=== PATIENT | female | born 1980 | race American Indian/Alaskan Native ===

== ENCOUNTER 2016-04-10 04:52 | Emergency (ER) | payer SELFPAY ==
[2016-04-10 05:12] VITALS: BP 115/75
[2016-04-10] MEDS ORDERED: DECADRON IM ONE (05:27)
[2016-04-10] MEDS ORDERED: BENADRYL PO ONE (05:27)
--- NOTE | 2016-04-10 05:36 | Emergency Department Report ---
HPI - General Chief Complaint: Animal Bite Time Seen by Provider: 04/10/16 05:26 - HPI HPI: 36-year-old female presents today with bed bug bites on both upper extremities since this morning. Patient states that she's been staying at a hotel and has seen the bed bugs. Positive for pruritus. Denies drainage or bleeding. Denies fever, chills, nausea, vomiting, chest pain, shortness of breath, abdominal pain. Denies difficulty breathing or difficulty swallowing. Denies any other medical complaints. ED Past Medical Hx - Past Medical History Previous Medical History?: No - Surgical History Past Surgical History?: No - Social History Smoking Status: Never Smoker Substance Use Type: None - Medications Home Medications: Home Medications Medication Instructions Recorded Confirmed Last Taken Type One Tablet 1 tab PO DAILY 06/13/14 06/13/14 1 Day Ago History Clindamycin [Cleocin] 300 mg PO Q8H #21 cap 06/14/14 Unknown Rx Ondansetron [Zofran Odt] 4 mg PO Q6H #30 tab.rapdis 06/14/14 Unknown Rx Diphenhydramine HCl [Benadryl 25 mg PO Q6H #20 tablet 04/10/16 Unknown Rx Allergy TAB] ED Review of Systems ROS: Stated complaint: BUG BITES Other details as noted in HPI Constitutional: denies: chills, fever, malaise Eyes: denies: eye pain ENT: denies: ear pain, throat pain, congestion Respiratory: denies: cough, shortness of breath, wheezing Cardiovascular: denies: chest pain, palpitations Endocrine: no symptoms reported Gastrointestinal: denies: abdominal pain, nausea, vomiting Skin: rash, pruritus Neurological: denies: headache, weakness Physical Exam - Physical Exam Vital Signs: Vital Signs 04/10/16 05:04 Temperature 98.6 F Pulse Rate 63 Respiratory 20 Rate Blood Pressure 115/75 O2 Sat by Pulse 100 Oximetry Physical Exam: GENERAL: The patient is well-developed and well-nourished. Patient is in NAD. SKIN: Erythematous, blanching, pruritic, raised bumps noted on both upper extremities. No signs of infection noted. HEAD: Normocephalic. Atraumatic. THROAT: No erythema, swelling or exudates. NECK: Supple, nontender, without lymphadenopathy. No meningitic signs are noted. CHEST/LUNGS: Clear to auscultation throughout. HEART/CARDIOVASCULAR: Regular rate and rhythm. No murmurs, rubs or gallops. ABDOMEN: Abdomen is soft, nontender. No guarding or rebound tenderness. EXTREMITIES: Peripheral pulses intact. Capillary refill less than 2 seconds. NEURO: Alert and oriented x 3. Normal gait. ED Course Vital Signs 04/10/16 05:04 Temperature 98.6 F Pulse Rate 63 Respiratory 20 Rate Blood Pressure 115/75 O2 Sat by Pulse 100 Oximetry ED Medical Decision Making - Lab Data Vital Signs 04/10/16 05:04 Temperature 98.6 F Pulse Rate 63 Respiratory 20 Rate Blood Pressure 115/75 O2 Sat by Pulse 100 Oximetry - Medical Decision Making 36-year-old female presents today with bed bug bites. Patient was given Decadron and Benadryl and reports symptomatic relief. Patient is in no acute distress at this time. She will be discharged home and is encouraged to follow up with a primary care provider. She will be sent home on Benadryl and is encouraged to return to the emergency room for any worsening symptoms. Critical care attestation.: If time is entered above; I have spent that time in minutes in the direct care of this critically ill patient, excluding procedure time. ED Disposition Clinical Impression: Bed bug bite Qualifiers: Encounter type: initial encounter Qualified Code(s): W57.XXXA - Bitten or stung by nonvenomous insect and other nonvenomous arthropods, initial encounter Disposition: DISCHARGED TO HOME OR SELFCARE Is pt being admited?: No Does the pt Need Aspirin: No Condition: Stable Instructions: Insect Bite or Sting (ED) Additional Instructions: Follow-up with primary care provider. Return to the emergency department if symptoms worsen. Prescriptions: Diphenhydramine HCl [Benadryl Allergy TAB] 25 mg PO Q6H #20 tablet Referrals: PRIMARY CARE [Primary Care Provider] - 3-5 Days [facility] [Outside] - 3-5 Days Forms: Work/School Release Form(ED), Accompanied Note Time of Disposition: 05:41
== END 2016-04-10 06:07 | disposition home or self-care (01) ==
LOC: ED 04:52
DX: S40.871A Other superficial bite of right upper arm, initial encounter (principal); S40.872A Other superficial bite of left upper arm, initial encounter; W57.XXXA Bitten or stung by nonvenomous insect and other nonvenomous arthropods, initial encounter; Y92.89 Other specified places as the place of occurrence of the external cause
CPT/HCPCS: 96372; 99282; J1100

== ENCOUNTER 2017-01-21 09:54 | Emergency (ER) | payer OTHER ==
[2017-01-21 10:29] VITALS: BP 100/54
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
== END 2017-01-21 14:23 | disposition home or self-care (01) ==
LOC: ED 09:54
DX: S66.912A Strain of unspecified muscle, fascia and tendon at wrist and hand level, left hand, initial encounter (principal); S80.02XA Contusion of left knee, initial encounter; V49.49XA Driver injured in collision with other motor vehicles in traffic accident, initial encounter; Y93.89 Activity, other specified; Y92.89 Other specified places as the place of occurrence of the external cause; Y99.8 Other external cause status

== ENCOUNTER 2020-02-29 03:03 | Emergency (ER) | payer MEDICAID, OTHER ==
[2020-02-29] MEDS ORDERED: ACETAMINOPHEN 500 MG TAB PO ONE (03:16)
[2020-02-29 03:50] LABS: Basophils # (Auto) 0.1 K/mm3 (0.0-0.1); Basophils % (Auto) 0.7 % (0.0-1.8); Eosinophils # (Auto) 0.2 K/mm3 (0.0-0.4); Eosinophils % (Auto) 2.2 % (0.0-4.3); Hematocrit 38.5 % (30.3-42.9); Hemoglobin 12.8 gm/dl (10.1-14.3); Lymphocytes # (Auto) 2.1 K/mm3 (1.2-5.4); Lymphocytes % (Auto) 25.2 % (13.4-35.0); Mean Corpuscular HGB Conc 33 % (30-34); Mean Corpuscular Volume 88 fl (79-97); Monocytes # (Auto) 0.8 K/mm3 (0.0-0.8); Monocytes % (Auto) 9.7 % (0.0-7.3); Platelet Count 327 K/mm3 (140-440); Red Blood Count 4.36 M/mm3 (3.65-5.03)
[2020-02-29 04:07] LABS: Alanine Aminotransferase 13 units/L (7-56); Albumin 4.1 g/dL (3.9-5); BUN/Creatinine Ratio 13; Blood Urea Nitrogen 8 mg/dL (7-17); Calcium 9.1 mg/dL (8.4-10.2); Hemolysis Index 2
--- NOTE | 2020-02-29 04:18 | Emergency Department Report ---
ED Female HPI - General Chief complaint: Vaginal Bleeding Stated complaint: VAGINAL BLEEDING/10WKS PREG Source: patient Mode of arrival: Ambulatory Limitations: No Limitations - History of Present Illness Initial comments: Patient is a A0 39-year-old -[place] female who is approximately 10 weeks gestation who presents to the ED with complaint of acute onset persistent suprapubic pain and vaginal bleeding for the last 1 week, worse in the last 2 days. Patient states that the pain is crampy and sharp and is intermittent and that the bleeding initially started as small spotting but in the last 2 days has had intermittent blood clots. Patient denies dysuria, urinary frequency and urgency, vaginal discharge, nausea, vomiting, diarrhea, fever, chills, cough, chest pain, shortness of breath, low back pain, headache, change in vision, dizziness or sore throat. MD Complaint: vaginal bleeding, pelvic pain -: Sudden, week(s) (1) Location: suprapubic, other (vaginal) Radiation: non-radiating Severity: moderate Severity scale (0 -10): 5 Quality: cramping, aching Consistency: intermittent Improves with: none Worsens with: none Are you Now?: Yes (Approximately 10 weeks gestation) Last Menstrual Period: 12/13/19 EDC: 09/18/20 Associated Symptoms: denies other symptoms, vaginal bleeding, abdominal pain. denies: vaginal discharge, nausea/vomiting, fever/chills, headaches, loss of appetite, dysuria, hematuria, rash, shortness of breath, syncope, weakness, other - Related Data Sexually active: Yes : 6 Para: 5 A: 0 Home Medications Medication Instructions Recorded Confirmed Last Taken One Tablet 1 tab PO DAILY 06/13/14 06/13/14 1 Day Ago ~06/12/14 Previous Rx's Medication Instructions Recorded Last Taken Type Clindamycin [Cleocin] 300 mg PO Q8H #21 cap 06/14/14 Unknown Rx Ondansetron [Zofran Odt] 4 mg PO Q6H #30 tab.rapdis 06/14/14 Unknown Rx Diphenhydramine HCl [Benadryl 25 mg PO Q6H #20 tablet 04/10/16 Unknown Rx Allergy TAB] Cyclobenzaprine HCl 7.5 mg PO TID PRN 10 Days #30 tab 01/21/17 Unknown Rx [Cyclobenzaprine 7.5 MG TAB] Ibuprofen [Ibuprofen 800] 800 mg PO Q6HR 7 Days #28 tablet 01/21/17 Unknown Rx Acetaminophen [Tylenol] 500 mg PO Q6HR PRN #30 tablet 02/29/20 Unknown Rx Allergies Allergy/AdvReac Type Severity Reaction Status Date / Time cephalexin monohydrate Allergy Itching Verified 01/21/17 10:23 [From Keflex] ED Review of Systems ROS: Stated complaint: VAGINAL BLEEDING/10WKS PREG Other details as noted in HPI Constitutional: denies: chills, fever Eyes: denies: eye pain, eye discharge, vision change ENT: denies: ear pain, throat pain Respiratory: denies: cough, shortness of breath, wheezing Cardiovascular: denies: chest pain, palpitations Endocrine: no symptoms reported Gastrointestinal: abdominal pain (suprapubic pain). denies: nausea, vomiting, diarrhea Genitourinary: abnormal menses (vaginal bleeding). denies: urgency, dysuria, discharge Musculoskeletal: denies: back pain, joint swelling, arthralgia Skin: denies: rash, lesions Neurological: denies: headache, weakness, paresthesias Psychiatric: denies: anxiety, depression Hematological/Lymphatic: denies: easy bleeding, easy bruising ED Past Medical Hx - Past Medical History Previous Medical History?: No - Surgical History Past Surgical History?: Yes Additional Surgical History: - Social History Smoking Status: Never Smoker Substance Use Type: None - Medications Home Medications: Home Medications Medication Instructions Recorded Confirmed Last Taken Type One Tablet 1 tab PO DAILY 06/13/14 06/13/14 1 Day Ago History ~06/12/14 Clindamycin [Cleocin] 300 mg PO Q8H #21 cap 06/14/14 Unknown Rx Ondansetron [Zofran Odt] 4 mg PO Q6H #30 tab.rapdis 06/14/14 Unknown Rx Diphenhydramine HCl [Benadryl 25 mg PO Q6H #20 tablet 04/10/16 Unknown Rx Allergy TAB] Cyclobenzaprine HCl 7.5 mg PO TID PRN 10 Days #30 tab 01/21/17 Unknown Rx [Cyclobenzaprine 7.5 MG TAB] Ibuprofen [Ibuprofen 800] 800 mg PO Q6HR 7 Days #28 tablet 01/21/17 Unknown Rx Acetaminophen [Tylenol] 500 mg PO Q6HR PRN #30 tablet 02/29/20 Unknown Rx ED Physical Exam - General Limitations: No Limitations General appearance: alert, in no apparent distress - Head Head exam: Present: atraumatic, normocephalic, normal inspection - Eye Eye exam: Present: normal appearance, PERRL, EOMI Pupils: Present: normal accommodation - ENT ENT exam: Present: normal exam, normal orophraynx, mucous membranes moist, TM's normal bilaterally, normal external ear exam - Neck Neck exam: Present: normal inspection, full ROM - Respiratory Respiratory exam: Present: normal lung sounds bilaterally. Absent: respiratory distress, wheezes, rales, rhonchi, chest wall tenderness, accessory muscle use, decreased breath sounds, prolonged expiratory - Cardiovascular Cardiovascular Exam: Present: regular rate, normal rhythm, normal heart sounds. Absent: systolic murmur, diastolic murmur, rubs, gallop - GI/Abdominal GI/Abdominal exam: Present: soft, tenderness (Palpable mild suprapubic tenderness), normal bowel sounds. Absent: guarding, rebound, hyperactive bowel sounds, hypoactive bowel sounds, organomegaly - Bi-manual exam: Present: other (Pelvic exam deferred, prefers own [employer]) - Extremities Exam Extremities exam: Present: normal inspection, full ROM, normal capillary refill - Back Exam Back exam: Present: normal inspection, full ROM. Absent: tenderness, CVA tenderness (R), CVA tenderness (L), muscle spasm, paraspinal tenderness, vertebral tenderness - Neurological Exam Neurological exam: Present: alert, oriented X3, CN II-XII intact, normal gait, reflexes normal - Psychiatric Psychiatric exam: Present: normal affect, normal mood - Skin Skin exam: Present: warm, dry, intact, normal color. Absent: rash ED Course Vital Signs 02/29/20 03:15 Temperature 98.1 F Pulse Rate 81 Respiratory 16 Rate Blood Pressure 104/69 O2 Sat by Pulse 99 Oximetry ED Medical Decision Making - Lab Data Result diagrams: 02/29/20 03:23 02/29/20 03:23 - Radiology Data Radiology results: report reviewed, image reviewed Transvaginal ultrasound shows a single live IUP of approximately 12 weeks and 3 days with a heart rate of 153 bpm. There is a visualized small mass in the lower uterus consistent with uterine fibroid. The ovaries were not visualized. - Medical Decision Making This is a A0 39-year-old -[place] female who is approximately 10 weeks gestation who presents to the ED with complaint of acute onset persistent suprapubic pain and vaginal bleeding for the last 1 week, worse in the last 2 days. Patient states that the pain is crampy and sharp and is intermittent and that the bleeding initially started as small spotting but in the last 2 days has had intermittent blood clots. In the ED, patient is alert and oriented x3 and is not in distress. Patient was treated for pain in the ED and lab test results [place] [id number]. The rest of the lab test results are nonactionable. On reevaluation, patient's pain is well controlled medication. Transvaginal ultrasound shows a single live IUP of approximately 12 weeks and 3 days with a heart rate of 153 bpm. There is a visualized small mass in the lower uterus consistent with uterine fibroid. The ovaries were not visualized. On reevaluation, patient's pain is well controlled medications. Patient will discharge home on pain medications and advised to maintain a complete pelvic rest with no strenuous, physical or sexual activity and to follow-up with DEPARTMENT ADMINISTRATOR physician in 2 to 3 days for reevaluation. Patient was advised return to the ED immediately if symptoms get worse. - Differential Diagnosis Ectopic preg; Ovarian cyst; Subchorionic bleed; Miscarriage; Fibroids; UTI Critical care attestation.: If time is entered above; I have spent that time in minutes in the direct care of this critically ill patient, excluding procedure time. ED Disposition Clinical Impression: Threatened miscarriage, Abdominal pain during in first trimester, Vaginal bleeding in patient after first trimester Disposition: DC-01 TO HOME OR SELFCARE Is pt being admited?: No Does the pt Need Aspirin: No Condition: Stable Instructions: Abdominal Pain During , [id number], Threatened Miscarriage, [id number], Vaginal Bleeding During , First Trimester, [id number] Additional Instructions: All lab test results were reviewed and showed no acute abnormalities. Therefore maintain a complete pelvic rest, with no physical, strenuous or sexual activities. Take pain medication as needed with food, drink plenty of fluids and follow-up with your DEPARTMENT ADMINISTRATOR physician in 2 to 3 days for reevaluation. Return to the ED immediately if symptoms get worse. Prescriptions: Acetaminophen [Tylenol] 500 mg PO Q6HR PRN #30 tablet PRN Reason: Pain , Severe (7-10) Referrals: NATHANIEL BUCKLEY MD [Staff Physician] - 3-5 Days Time of Disposition: 06:43 Print Language: TANZANIAN
[2020-02-29 06:07] LABS: Bilirubin,Urine NEG (Negative); Blood,Urine NEG (Negative); Color,Urine Yellow (Yellow); Mucus,Urine FEW /HPF; Protein,Urine <15 mg/dL mg/dL (Negative); Urobilinogen,Urine < 2.0 mg/dL (<2.0); WBC,Urine < 1.0 /HPF (0.0-6.0)
--- NOTE | 2020-02-29 07:09 | Ultrasound Report ---
ULTRASOUND OBSTETRIC INDICATION / CLINICAL INFORMATION: Vaginall bleeding, pain. Clinical Gestational Age (GA) in weeks, days: 11 weeks 1 day TECHNIQUE: Transabdominal. COMPARISON: None available. FINDINGS: GESTATIONAL SAC: Well-defined oval shape and intrauterine in location. YOLK SAC: No significant abnormality. EMBRYO/FETUS: No significant abnormality. - Lovilia-Rump Length = 6 cm = 12 weeks, 3 days - Heart Rate, beats per minute (if present) = 153 Placenta is located within the fundus. ADNEXA: The ovary could be visualized. FREE FLUID: None. ADDITIONAL FINDINGS: There is a 1.4 cm solid appearing mass in the lower uterine segment possibly rep resenting a small uterine fibroid... IMPRESSION: 1. Single, living intrauterine with estimated sonographic age of 12 weeks, 3 days. 2. Nonvisualization of both ovaries. 3. 1.4 cm round solid appearing mass, lower uterine segment, possibly small uterine fibroid. Signer Name: Miriam Ewing MD Signed: 02/29/2020 7:05 AM Workstation Name: [email or web address]
[2020-02-29 07:27] VITALS: BP 118/74
== END 2020-02-29 07:24 | disposition home or self-care (01) ==
LOC: ED 03:03
DX: O20.0 Threatened abortion (principal); O26.891 Other specified pregnancy related conditions, first trimester; R10.2 Pelvic and perineal pain; Z3A.10 10 weeks gestation of pregnancy; Z98.890 Other specified postprocedural states; Z79.899 Other long term (current) drug therapy; Z88.8 Allergy status to other drugs, medicaments and biological substances
CPT/HCPCS: 36415; 76801; 80053; 81001; 84702; 85025; 86900; 86901